=== PATIENT | female | born 1975 | race African-American/Black ===

== ENCOUNTER 2016-11-10 19:21 | Emergency (ER) | payer SELFPAY | END 2016-11-10 20:40 | disposition left against medical advice (07) | LOC: ER 19:21 | DX: Z53.21 Procedure and treatment not carried out due to patient leaving prior to being seen by health care provider (principal) ==

== ENCOUNTER 2016-11-11 11:28 | Emergency (ER) | payer SELFPAY ==
[2016-11-11] MEDS ORDERED: IBUPROFEN 800 MG TABLET PO ONE (12:30)
--- NOTE | 2016-11-11 12:32 | ER Document Report ---
ED Medical Screen (RME) - General Chief Complaint: Abscess Stated Complaint: POSSIBLE ABSCESS Time seen by provider: 12:27 Mode of Arrival: Ambulatory Information source: Patient TRAVEL OUTSIDE OF THE [place] IN LAST 30 DAYS: No - HPI Patient complains to provider of: POSSIBLE ABSCESS Onset: Other - 2-3 DAYS Onset/Duration: Sudden Context: POSSIBLE ABSCESS NEAR VAGINA. PT SHAVES AREA Quality of pain: Throbbing Severity: Moderate Pain Level: 4 Associated Symptoms: None Exacerbated by: Sitting, Movement, Walking Relieved by: Denies Similar symptoms previously: No Recently seen / treated by doctor: No - Related Data Smoking: Cigarettes Frequency of alcohol use: None Drug Abuse: None Pertinent History: ASTHMA Allergies/Adverse Reactions: erythromycin base Allergy (Verified 11/11/16 11:50) Shellfish * [Shellfish] Allergy (Verified 11/11/16 11:50) Past Medical History - General Last Menstrual Period: 11/06/16 - Immunizations Hx Diphtheria, Pertussis, Tetanus Vaccination: Yes Physical Exam - Vital signs Vitals: Temp Pulse Resp BP Pulse Ox 97.5 F 96 16 141/95 H 100 11/11/16 11:34 11/11/16 11:34 11/11/16 11:34 11/11/16 11:34 11/11/16 11:34 Course - Vital Signs Vital signs: Temp Pulse Resp BP Pulse Ox 97.5 F 96 16 141/95 H 100 11/11/16 11:34 11/11/16 11:34 11/11/16 11:34 11/11/16 11:34 11/11/16 11:34
[2016-11-11] MEDS ORDERED: LIDOCAINE 1%/EPINEPHRINE INJ 20 ML VIAL INJ ONE (13:45)
--- NOTE | 2016-11-11 13:47 | ER Document Report ---
ED Skin Rash/Insect Bite/Abscs - General Chief Complaint: Abscess Stated Complaint: POSSIBLE ABSCESS Mode of Arrival: Ambulatory Notes: Patient has a painful swelling of the right lower buttock and perianal region for the past 3 days. Is getting bigger and more painful. Has not drained. Has never had one of these before. Has not had a fever. On no current medications. Past history of a tubal ligation. LMP now. TRAVEL OUTSIDE OF THE [place] IN LAST 30 DAYS: No - Related Data Allergies/Adverse Reactions: erythromycin base Allergy (Verified 11/11/16 11:50) Shellfish * [Shellfish] Allergy (Verified 11/11/16 11:50) Past Medical History - General Information source: Patient Last Menstrual Period: 11/06/16 - Social History Smoking Status: Current Every Day Smoker Cigarette use (# per day): Yes Frequency of alcohol use: None Drug Abuse: None Family History: Hypertension Patient has suicidal ideation: No Patient has homicidal ideation: No - Immunizations Hx Diphtheria, Pertussis, Tetanus Vaccination: Yes Review of Systems - Review of Systems Constitutional: denies: Fever Cardiovascular: denies: Chest pain Respiratory: denies: Cough, Short of breath, Wheezing Gastrointestinal: denies: Abdominal pain, Diarrhea, Vomiting Skin: See HPI Physical Exam - Vital signs Vitals: Temp Pulse Resp BP Pulse Ox 97.5 F 96 16 141/95 H 100 11/11/16 11:34 11/11/16 11:34 11/11/16 11:34 11/11/16 11:34 11/11/16 11:34 Interpretation: Normal - Notes Notes: PHYSICAL EXAMINATION: GENERAL: Well-appearing, in no acute distress. HEAD: Atraumatic, normocephalic. LUNGS: Breath sounds clear and equal bilaterally. HEART: Regular rate and rhythm without murmurs. ABDOMEN: Soft, nontender. No guarding or rebound. BACK: No tenderness throughout entire back. EXTREMITIES: Normal range of motion without pain. SKIN: Warm, dry, no rashes. Patient has an apparent abscess, about 2 cm diameter, in the right perianal region. Course - Vital Signs Vital signs: Temp Pulse Resp BP Pulse Ox 97.9 F 92 16 132/90 H 100 11/11/16 15:20 11/11/16 15:20 11/11/16 15:20 11/11/16 15:20 11/11/16 15:20 Procedures - Incision and Drainage Right Zaida-Anal Type: Simple Anesthetic type: 1% Lidocaine w/epi I&D procedure: Betadine prep applied Incision Method: Incision made by scalpel Notes: 11/11/16 21:00 Incision made with an 11 scalpel blade with prompt flow of pus from the site. I used a hemostat to open the incisional site up wider and obtain some more flow of pus. I used the hemostat to break up any subcutaneous loculations. Irrigated the remaining pocket with saline. I crisscrossed the incision to keep it open and did not pack it with iodoform gauze. Discharge - Discharge Clinical Impression: Perianal abscess Condition: Stable Disposition: HOME, SELF-CARE Additional Instructions: ABSCESS: You have an abscess (boil). This a pus-forming infection, usually due to staph. Some boils may be left to drain on their own, but most require lancing. From the time the tender lump first appears, it may be three or four days before the abscess is ready to júnior. Local heat and rest help at this stage of treatment. An antibiotic may prevent spread of the infection. Once the abscess is opened, packing may be placed into it. This is done so pus is not sealed inside by premature closure of the cavity. The packing will be removed at your follow-up visit or you may be advised to remove it yourself at home. Sometimes this packing must be replaced a few times during healing. The wound will heal with surprisingly little scar. Depending on the size and location of an abscess, healing can take one to four weeks. You may shower and wash the area around the incision site two or three times a day. Antibiotics may be prescribed, but are usually not necessary after an abscess has been drained. If you develop fever, chills, worsening pain, or increasing swelling in the area, call the doctor or return immediately. POST INCISION AND DRAINAGE: You have had an incision made to allow drainage of an abscess. The incision must remain open so that pus and debris can drain from the wound. If the abscess cavity is large, packing is placed. This keeps the tissues from collapsing and trapping pus inside, while the body shrinks the cavity. The packing may need to be replaced every day or two. The physician will instruct you on the packing. Keep a bulky dressing over the area. Replace it if it becomes saturated with blood or pus. Do not disturb the packing (if present). You may shower and cleanse the area with gentle soap and warm water two or three times a day. Local warmth may be soothing, and may promote faster healing. Return if you develop high fever or chills, or if you note spreading redness, increasing swelling, or increasing tenderness. ORAL NARCOTIC MEDICATION: You have been given a prescription for pain control. This medication is a narcotic. It's best taken with food, as nausea can result if taken on an empty stomach. Don't operate machinery or drive within six hours of taking this medication. Do not combine this medicine with alcohol, or with any medication which can cause sedation (such as cold tablets or sleeping pills) unless you get permission from the physician. Narcotics tend to cause constipation. If possible, drink plenty of fluids and eat a diet high in fiber and fruits. Antinausea Medication You have been given a medication to suppress nausea and vomiting. This type of medication can be given as a shot, pill, or suppository. It will usually last for many hours. Pills and shots usually last six to eight hours, suppositories last about 12 hours. For the typical illness, only one or two doses of the medication may be necessary. Mild lightheadedness may occur. This type of medicine can cause drowsiness. Do not drive or operate dangerous machinery while under its influence. Do not mix with alcohol. See your doctor at once if you have muscle spasms or tightness, or uncontrollable motions (particularly of the neck, mouth, or jaw). Persistent vomiting or severe lightheadedness should also be evaluated by the physician. CEPHALEXIN: The antibiotic you've been prescribed is a member of the cephalosporin class. This type of antibiotic covers a wide variety of infections, including those of the skin, lungs, and urinary tract. It's useful for staph infections. This antibiotic is slightly similar to the penicillin family. In rare cases , a person who is allergic to penicillin will also be allergic to this medication. If you have had a severe allergic reaction to penicillin, and have not taken this antibiotic since that time, notify your doctor. Antibiotics which cover many germs ("broad spectrum" antibiotics) are more likely to cause diarrhea or "yeast" infections. Women prone to vaginal yeast problems may suffer an attack after taking this antibiotic. In infants, oral thrush (white spots "stuck" on the cheek) or yeast diaper rash may result. See your doctor if these problems occur. Call at once if you develop itching, hives , shortness of breath, or lightheadedness. DOXYCYCLINE: Doxycycline (Vibramycin, Doryx) is an antibiotic of the tetracycline family. This type of drug is useful for infections of the respiratory tract and genital tract, and is sometimes used for intestinal infections. Unlike most tetracyclines, doxycycline can be taken with food. It is longer acting, and (usually) less prone to side effects than regular tetracycline. Tetracycline antibiotics can stain immature teeth and SHOULD NOT BE TAKEN BY CHILDREN, NURSING MOTHERS, OR WOMEN. Tetracyclines can make you more prone to sunburn. Abdominal cramping, nausea, and diarrhea are occasional side effects. Women may experience vaginal yeast infections. Call the doctor at once if you develop hives, itching, shortness of breath , or lightheadedness. FOLLOW-UP CARE: Most simple abscesses will not require a follow up visit. If you had packing placed in the abscess, remove it as instructed by the physician. If you have been referred to a physician for follow-up care, call the physicians office for an appointment as you were instructed or within the next two days. If you experience worsening or a significant change in your symptoms, return to the Emergency Department at any time for re-evaluation. You should sit in a tub of warm water and soak the area for about 10-15 minutes at least 4 times a day for the next 3 or 4 days and then gradually reduce the number of times a day down to none in about 4 or 5 days. Take the prescribed medications. Return if your pain and swelling worsen or he began running a fever, etc. Prescriptions: Cephalexin [Cephalexin 250 MG Tablet] 250 mg PO QID #25 tablet Doxycycline Hyclate 100 mg PO BID #14 capsule Fluconazole [Diflucan] 200 mg PO ONCE PRN #1 tablet PRN Reason: Oxycodone HCl/Acetaminophen [Percocet 5-325 mg Tablet] 1 - 2 tab PO Q4H PRN #15 tablet PRN Reason: Promethazine HCl [Phenergan 25 mg Tablet] 1 - 2 tab PO Q6H PRN #15 tablet PRN Reason:
[2016-11-11 15:36] VITALS: BP 132/90
== END 2016-11-11 15:50 | disposition home or self-care (01) ==
LOC: ER 11:28
DX: K61.0 Anal abscess (principal); F17.210 Nicotine dependence, cigarettes, uncomplicated; Z88.1 Allergy status to other antibiotic agents; Z91.013 Allergy to seafood
CPT/HCPCS: 46050; 99283; 87070; 87205; 87075; 87077; J3490